=== PATIENT | female | born 1950 | race Caucasian/White ===

== ENCOUNTER 2023-01-03 09:16 | Outpatient (CLI) | payer MEDICARE, SELFPAY ==
--- NOTE | ~2023-01-03 | XR_ITS ---
Left Shoulder Technique: AP and scapular Y views were obtained. Clinical History: Pain Findings: No fracture or dislocation is seen. Osseous alignment is anatomic. Glenohumeral joint is in tact. Evidence of prior subacromial decompression with probable partial resection of the distal clavi venessa as associated widening of the acromioclavicular space. Suture anchor is noted at the humeral head . Soft tissues are unremarkable. Impression: No acute abnormality evident. Evidence of prior rotator cuff surgery and probable prior subacromial decompression and partial resec tion of the distal clavicle. Correlate with surgical history. Reviewed, dictated and finalized at [facility]. IAL EVENTS ASSISTANT Impression: No acute abnormality evident. Evidence of prior rotator cuff surgery and probable prior subacromial decompres jackson and partial resection of the distal clavicle. Correlate with surgical hist ory.
== END 2023-01-03 09:17 | disposition home or self-care (01) ==
PROVIDERS: PCP Family Medicine; Visit Provider Orthopaedic Surgery
DX: M25.512 Pain in left shoulder (principal)
CPT/HCPCS: 73030

== ENCOUNTER 2023-02-23 08:33 | Outpatient (CLI) | payer MEDICARE, SELFPAY ==
--- NOTE | ~2023-02-23 | CT_ITS ---
Noncontrast CT scan of the left shoulder CLINICAL HISTORY: Preoperative planning TECHNIQUE: Axial noncontrast imaging of the left shoulder was performed. Sagittal oblique and coronal oblique reformatted images were constructed. Dose reduction technique was used on this scan by Copiny automated exposure control and iterative reconstruction technique. The dose-length product (DLP) was 483.93 mGy-cm. Findings: There is moderate degenerative change of the glenohumeral joint, with small inferomedial hu meral head osteophyte, as well as glenoid osteophytes present. There is probable mild joint space isa rowing of the glenohumeral joint with small areas of subchondral cystic change at the glenoid. Sugges tion of mildly high riding humeral head. Suture anchors are present at the greater tuberosity, consis tent with prior rotator cuff repair surgery. There is widening of the acromioclavicular distance, lik joaquina related to postoperative change. Suspected small glenohumeral joint effusion present. No muscle atrophy evident. No soft tissue mass o r other fluid collection evident. IMPRESSION: Moderate glenohumeral joint degenerative change, as above. Evidence of prior rotator cuff repair surgery with mildly high riding humeral head. Widening of the acromioclavicular distance, likely related to prior subacromial decompression and/or distal clavicular resection. Correlate with surgical history. Probable small glenohumeral joint effusion. Reviewed, dictated and finalized at [facility]. IMPRESSION: Moderate glenohumeral joint degenerative change, as above. Evidence of prior rotator cuff repair surgery with mildly high riding humeral h ead. Widening of the acromioclavicular distance, likely related to prior subacromial decompression and/or distal clavicular resection. Correlate with surgical hist ory. Probable small glenohumeral joint effusion.
== END 2023-02-23 08:34 | disposition home or self-care (01) ==
PROVIDERS: PCP Family Medicine; Visit Provider Orthopaedic Surgery
DX: M19.012 Primary osteoarthritis, left shoulder (principal)
CPT/HCPCS: 73200

== ENCOUNTER 2023-03-19 11:43 | Outpatient (CLI) | payer MEDICARE, SELFPAY ==
--- NOTE | 2023-03-19 12:43 | ECG_ITS ---
Measurements Intervals [place] Rate: 50 P: 79 [place]: 148 QRS: 73 QRSD: 78 T: 45 QT: 421 QTc: 385 Interpretive Statements SINUS BRADYCARDIA RSR' IN V1 OR V2, PROBABLY NORMAL VARIANT DELAYED PRECORDIAL R/S TRANSITION BASELINE ARTIFACT- I, II, III, AVR, AVL, AVF, V3 BORDERLINE ECG NO PREVIOUS ECG AVAILABLE FOR COMPARISON Electronically Signed On 03-19-2023 13:21:26 CDT by Pancho Mc D.O.
[2023-03-19 14:29] LABS: Basophils Absolute Auto 0.1 K/mm3 (0.0-0.1); Basophils Percent Auto 0.9 % (0.2-1.2); Eosinophils Absolute Auto 0.1 K/mm3 (0-0.3); Eosinophils Percent Auto 1.9 % (0-4.4); Hematocrit 44.2 % (37.0-47.0); Immature Granulocyte Absolute 0.02 K/mm3 (0.00-0.031); Immature Granulocyte Percent A 0.3 % (0-0.5); Lymphocytes Absolute Auto 2.05 K/mm3 (0.9-3.2); Lymphocytes Percent Auto 31.6 % (18.3-44.2); Mean Corpuscular HGB Conc 33.9 g/dl (32-36); Mean Corpuscular Hemoglobin 32.8 pg (26-34); Mean Corpuscular Volume 96.7 fl (80-100); Mean Platelet Volume 10.2 fl (7.4-10.4); Monocytes Absolute Auto 0.5 K/mm3 (0.1-0.6); Monocytes Percent Auto 7.9 % (2.6-8.5); Neutrophils Absolute Auto 3.7 K/mm3 (1.3-6.7); Neutrophils Percent Auto 57.4 % (45.5-73.1); Platelet Count Result 281 k/mm3 (150-375); Red Blood Count 4.57 M/mm3 (4.2-5.4); Red Cell Distribution Width 12.4 % (11.5-14.5); White Blood Count 6.5 K/mm3 (4.5-10.0)
== END 2023-03-19 11:44 | disposition home or self-care (01) ==
PROVIDERS: PCP Family Medicine; Visit Provider Orthopaedic Surgery
DX: M12.812 Other specific arthropathies, not elsewhere classified, left shoulder (principal); I48.91 Unspecified atrial fibrillation; R94.31 Abnormal electrocardiogram [ECG] [EKG]
CPT/HCPCS: 36415; 85025; 87081; 93005

== ENCOUNTER 2023-04-17 00:14 | Day surgery (SDC) | payer MEDICARE, SELFPAY ==
[2023-03-19 12:02] VITALS: BMI 22.1
--- NOTE | 2023-03-19 12:30 | PC.NURSE ---
Addendum entered by Silvina Arcos RN 03/19/23 13:08: BENI HOLD 7 DAYS PRE OP.LAST DOSE 04/09/23 Original Note: Report to the Outpatient Waiting Room, entrance under the green pavilion located off [facility], at time _0600 on date _04/17/23 . Planned Procedure Time: _0730 . Time changes happen often and if your time is changed the preop area will call you the afternoon before. - You and your visitor will be asked to self-screen and do not enter if you have any COVID symptoms. - A mask is optional within the hospital at this time. Patients may have clear liquids (water, carbonated beverages, clear teas, apple juice) until 3 hours prior to surgery with a maximum of 20 ounces. - No food from midnight until time of surgery - Infants may have breast milk until 4 hours before surgery, formula 6 hours prior to surgery. - Children will be allowed to drink immediately following surgery. If applicable, please bring a bottle or sippy cup to assist with drinking. Juice, water, soda, and popsicles are readily available. For infants on formula, please bring formula the day of surgery. Pacifiers are allowed. Take the following medications with a SIP of water the morning of surgery: ___DILTIAZEM DO NOT STOP ANY OF YOUR OTHER PRESCRIPTION MEDICATIONS PRIOR TO SURGERY ?EXCEPT THE FOLLOWING Medications to discontinue per physician __PT STATES HOLD DABIGATRAN 2 DAYS PRE OP PER DR OLMEDO LAST DOSE 04/14/23 AND HOLD ALL VITAMINS/SUPPLEMENTS 7 DAYS PRE OP _LAST DOSE 04/09/23 Date to take last dose Please no make-up, nail swedish, hairspray, perfume, deodorant, or body powder the day of surgery. No jewelry (including any body piercings) or valuables the day of surgery, leave them at home. Please take a shower or bath the night before, or the morning of, surgery with an antibacterial soap. Wear comfortable, loose fitting clothing. Children are encouraged to wear pajamas. - Jewelry must be removed prior to entering the operating room. Rings and piercings that are not removed may be cut off. - The hospital will not accept responsibility for valuables. - Please leave all valuables, including medications, at home the day of surgery. If you are going home after surgery, a licensed miniature train driver must drive you home. - NO public transportation without another adult if you receive anesthesia. - We recommend that an adult stay with you for 24 hours following discharge. - We also recommend that you do not drive, make important decision, drink alcoholic beverages, or take any drugs that were not prescribed by your health care provider for at least 24 hours after your discharge time. For Pediatric surgeries, we recommend two adults accompany the child home. Follow any additional instructions given to you from your surgeon. If you or anyone in your household have experienced Covid symptoms in the past week, please notify your surgeon or the nurse liaison at the phone number below for possible testing. VERBAL AND WRITTEN instructions given to ___PATIENT and asked if any additional questions and then verbalized understanding. Patient advised to call surgeon office or pre surgery nurse liaison [phone] if any additional questions.
--- NOTE | 2023-04-16 14:19 | WPDANESEPPF ---
Anes - Initial Pre Proc Eval Procedure: Operation Date: 04/17/23 07:30 Proposed Procedures p Left Reverse Total Shoulder Arthroplasty - Ethan Anand MD Date/Time: 04/16/23 14:19 Surgeon: Ethan Anand MD Pre Op Diagnosis: Left Rot Cuff Arthropathy Patient Data Age: 72 Gender: F Height: 1.7 m Weight: 64 kg Allergies Allergy/AdvReac Type Severity Reaction Status Date / Time Mtcpchg-QBB-UrI Reductase Allergy Unknown Cramping Verified 04/17/23 06:34 Inhibitor of the Muscles ezetimibe AdvReac Cramping Verified 04/17/23 06:34 of the Muscles Home Medications Medication Instructions Recorded Confirmed Type calcium carbonate 600 mg-vitamin 1 tablet PO DAILY 01/01/23 04/17/23 History D3 20 mcg (800 unit) tablet (Caltrate with Vitamin D3) cholecalciferol (vitamin D3) 10 10 mcg PO DAILY 01/01/23 04/17/23 History mcg (400 unit) capsule dabigatran etexilate 150 mg 150 mg PO BID 01/01/23 04/17/23 History capsule (Pradaxa) diltiazem HCl 120 mg 120 mg PO DAILY 01/01/23 04/17/23 History capsule,extended release 24 hr omega 0-nmu-oum-fish oil 60 mg-90 1 cap PO DAILY 01/01/23 04/17/23 History mg-500 mg capsule (Fish Oil) glucosamine 750 bt-xonrakouqpw-kjq 1 tablet PO DAILY 03/19/23 04/17/23 History no1 644 mg-C 30 mg-sera 1 mg tablet (Osteo Bi-Flex Triple Strength) naproxen sodium 220 mg capsule 440 mg PO BID PRN Pain 03/19/23 03/19/23 History (Aleve) vitamin A-vitamin C-vit E-min 1 tablet PO DAILY 03/19/23 04/17/23 History tablet Patient hx anesthesia problems: post op nausea/vomiting Family hx anesthesia problems: none Results Review: All pre-operative results and documents have been reviewed as part of the pre-operative evaluation. [facility] Past Medical History Medical History (Updated 04/16/23 @ 14:19 by Thien Shin DO) Atrial fibrillation, chronic History of bruising easily History of postoperative nausea and vomiting History of skin cancer Multiple surgeries History of stress test (~2020) Hyperlipidemia PONV (postoperative nausea and vomiting) Surgical History Surgical History History of arthroscopy of left shoulder (~10/2015) History of cardiac radiofrequency ablation (~04/2015) History of cardiac radiofrequency ablation (~02/2017) History of foot surgery (~12/2014) History of foot surgery (~11/2017) Toe Dislocation History of rotator cuff surgery (~12/2000) History of rotator cuff surgery (~10/2018) History of tooth extraction Family History Family History Unknown Skin cancer Arthritis Atrial fibrillation, chronic Social History Social History Smoking status: Never smoker Alcohol intake: current Drinks per week: 10 Alcohol use details: 1-5 drinks per week Substance use: current Substance use type: marijuana Other substance usage details: not specified Last use: 03/17/23 Lack of Transportation: No Lack of Food: Never True Current Housing: I Have Housing Concerned About Future Housing: No Difficulty Paying Gas/Electric Bills: No Difficulty Paying for Meds: No Currently Unemployed: No Education: Bachelor's Degree Difficulty w/ Childcare or Family Care: No Living arrangements: with family Spiritual care concerns: No Anes - Eval Final PreProcedure Day of Procedure 04/16/23 14:19 Patient weight: normal Heart: regular rate and rhythm Lungs: clear to auscultation and normal air movement Airway: Mallampati scale class II Neurological: alert and oriented Last oral intake: >/= 8 hours ASA classification: III Emergent: no Anesthetic plan: proceed Anesthesia type and monitoring: general ETT and standard monitoring Results Review: All pre-operative results and documents have been revie
[2023-04-17] VITALS (11 sets, daily range): BP systolic 120–142; BP diastolic 49–69; PULSE 52–63; RESP 13–21; TEMP 36.1–36.4; O2SAT 98–100
--- NOTE | ~2023-04-17 | XR_ITS ---
EXAMINATION: XR shoulder LT min 2V DATE: 04/17/2023 10:37 INDICATION: Left shoulder arthroplasty. Postop. TECHNIQUE: 2 views of left shoulder were obtained. COMPARISON: Left shoulder radiographs 01/03/2023 FINDINGS: There is a reverse ekap-etc-gznhvv total left shoulder arthroplasty in near-anatomic alignm ent. There are pre-existing screws in greater tuberosity. No fracture. There are likely changes of di stal clavicle resection. There is gas in the soft tissues, consistent with recent surgery. IMPRESSION: 1. Reverse wzmd-ofd-lauxir total left shoulder arthroplasty in near-anatomic alignment. Reviewed, dictated and finalized at location A. IMPRESSION: 1. Reverse szml-dsm-tsnyxh total left shoulder arthroplasty in near-anatomic al ignment.
[2023-04-17] MEDS: LACTATED RINGERS 1,000 ML 30 ML IV CONT ×2 (06:45→10:15)
[2023-04-17] MEDS: ACETAMINOPHEN 500 MG TABLET 1000 MG PO (06:50)
[2023-04-17] MEDS: TRANEXAMIC ACID 1,000MG/ISO100 1,000 MG/100 ML BAG 200 MG IVPB (06:51)
--- NOTE | 2023-04-17 07:13 | WPDHPUPDATE1 ---
History and Physical Update Update Date/Time: 04/17/23 07:13 History and Physical has been reviewed, including an updated exam of the patient. There are NO changes in the patient's condition. Risks, benefits, and alternatives have been discussed and questions answered. Patient agrees to proceed with procedure.
--- NOTE | 2023-04-17 07:22 | WPDANESPNB ---
Anes - Peripheral Nerve Block Date/Time: 04/17/23 07:22 I have discussed with the patient/family/POA the placement of a peripheral nerve block for post-operative pain management, including associated risks, benefits, complications, and side effects. Alternative methods of post-operative analgesia were detailed. Questions were solicited and answers provided to the satisfaction of the patient/family/POA. Time-Out: A pre-procedural Time-Out was completed immediately before starting the procedure and confirmed: Patient Identification, Site, Procedure, Patient Position and the Availability of Requisite Equipment. Clinical Indications: Acute post-operative pain management requested by the operative surgeon. Nerve Block Insertion Note Anes-nerve block: interscalene left Patient position: supine Skin prep: chlorhexidine Needle: 22 gauge, stimulating, insulated echogenic needle. Needle length: 50 mm Technique: ultrasound Injectate: bupivacaine 0.5% with epi 5 mcg/ml (30cc- no epi) Observations: tolerated well Complications: none Procedure start time:: 725 Procedure end time:: 728
[2023-04-17] MEDS: ceFAZolin 2 GM/D5W 50 ML 2 GM/50 ML BAG IVPB (07:42)
[2023-04-17] MEDS: VANCOMYCIN HCL 1,000 MG VIAL 1000 MG TOPICAL (08:58)
--- NOTE | 2023-04-17 10:13 | P.OP_ITS ---
Procedure Note - Detailed Date of Procedure 04/17/23 Pre-op Diagnosis Left shoulder rotator cuff arthropathy. Post-op Diagnosis Same Procedure Performed Reverse total shoulder arthroplasty, left shoulder. Surgeon Ethan Anand MD Anesthesia General and Regional (Interscalene block.) Findings Good cancellous bone quality. 5 degree augment placed superiorly. Additional 5? inferior tilt added with reaming. Care taken to avoid overstuffing due to thin acromion status post previous acromioplasty. Subscapularis repaired. Description of Procedure The patient was given an interscalene block in the preoperative area. Preoperative antibiotics were given. The patient was transferred to the operating room and a general anesthetic was administered. The beach chair position was used at 45 degrees. All bony prominences were padded. The head was carefully stabilized on the [facility] wet process miller head. A sterile prep and drape was performed in the usual manner with ChloraPrep. A longitudinal incision was created at the anterior shoulder just lateral to the deltopectoral interval. Hydrogen peroxide was placed on the incision and then rinsed after one minute. Careful dissection was performed to expose the interval and protect the cephalic vein. The vein was retracted medially. The upper border of the pectoralis was released. Anterior circumflex vessel branches were suture ligated. The biceps was tenodesed. A subscapularis tenotomy was performed. The inferior capsule was released, exposing the humeral head. Osteophytes were removed. Care was taken to stay on bone to protect the axillary nerve. The anatomic head cut was taken with the oscillating saw. The guide pin was placed, central drilling performed, and the broach trial inserted. The neck anteversion and inclination were carefully assessed. The cut protector was placed, and attention was turned to the glenoid. Retractors were placed. Releases were carried out for exposure. The subscapularis was mobilized, the inferior capsule and long head of triceps released, and the superior and middle glenohumeral ligaments released as well. Labral tissue was resected as needed. The sizing template was used to assess the baseplate position low on the glenoid. A guide pin was placed. Minimal reaming was used to accomplish a flat surface without violating the subchondral bone. Version was corrected according to preoperative templating. The boss was drilled, and the real component was impacted into position. Supplemental locking screws were placed centrally, superiorly, and inferiorly. The glenosphere was impacted into the taper. The proximal humerus was reamed for the inset component. The humeral components were trialed. The real humeral stem, tray, and insert were impacted into position. The shoulder was copiously irrigated periodically with pulsatile lavage. The shoulder was reduced and stability confirmed. 1 gram of Vancomycin powder was placed in the joint. The biceps tenodesis was incorporated with the pectoralis tendon repair. The deltopectoral space was reapproximated with number 1 Vicryl. The remaining tissue was closed with 0 Quill and 2-0 Quill running suture and steri-strips. A sterile silver occlusive dressing and shoulder immobilizer were placed. The patient was trans ferred to the recovery room. Implants Shoulder [employer]ations reverse TSA size 0 stem. +0 polyethylene insert. 5 degree augmented baseplate. 33+3 mm glenosphere. Estimated Blood Loss 20 Drains No Pathology None sent Complications No immediate complications Condition Stable Disposition PACU [facility] Billing Surgery - Charge Forward: Surgery Billing
--- NOTE | 2023-04-17 11:38 | ADMGEN ---
This patient, Britt Fuchs, was admitted to 2 Medical Room 251-01. Patient/family oriented to hospital policies and general routines including ID bracelet, bed and alarms, visiting hours, pain management, procedures, bathroom and other care routines, personal items, smoking policy, room service/diet, and visiting hours. Information on how to activate the Rapid Response Team has been discussed. Patient/Family are encouraged to report perceived risks to care and to ask questions if they do not understand what they are told or what they should do.
[2023-04-17] MEDS: SENNA/DOCUSATE SODIUM TABLET 2 TAB PO (16:07)
[2023-04-17] MEDS: ASPIRIN 81 MG ENTERIC TABLET PO (16:08)
[2023-04-17] MEDS: ceFAZolin 1 GM/NS 50 ML 1 GM/50 ML BAG IVPB ×2 (16:15→22:26)
[2023-04-17] MEDS: oxyCODONE HCL (*CRX) 5 MG TAB IR PO (22:27)
--- NOTE | 2023-04-18 10:40 | PCPTNOTE ---
PT attempted to see patient at this time, however patient states she has increased L shoulder pain and requests PT return later. PT will continue to follow per plan of care.
--- NOTE | 2023-04-18 19:10 | PC.NURSE ---
Paper documentation exists on this patient due to [employer] downtime on 04/18/23 from 0030 to 1900] .
[2023-04-19 13:27] LABS: Sodium 138 mmol/L (137-145)
[2023-04-19 13:28] LABS: Anion Gap 6 mmol/L (8-16); Blood Urea Nitrogen 15 mg/dL (7-17); Calcium 8.9 mg/dL (8.4-10.2); Carbon Dioxide 29 mmol/L (22-30); Chloride 103 mmol/L (98-107); Estimated CRCL calculation 85 ml/min; Estimated Glomerular Filt Rate > 60; Glucose 103 mg/dL (65-110); Potassium 4.6 mmol/L (3.4-5.0)
--- NOTE | 2023-04-19 16:33 | PM.DS ---
DS: Admitting Diagnosis Discharge Date 04/18/23 Admitting Diagnosis Date of Procedure 04/17/23 Pre-op Diagnosis Left shoulder rotator cuff arthropathy. Post-op Diagnosis Same Procedure Performed Reverse total shoulder arthroplasty, left shoulder. DS: Discharge Diagnosis Discharge Diagnosis (1) Status post reverse total arthroplasty of left shoulder: Code(s): Z96.612 - Presence of left artificial shoulder joint Status: Acute DS: Summary Hospital Course Reason for hospitalization: Total shoulder arthroplasty. Hospital Course: Tolerated surgery well. Progressed appropriately with therapy. Status at Discharge Functional status at discharge: independent ambulation Overall status at discharge: patient is progressing back to baseline Time Spent with Patient Time attestation: Total time spent providing and/or coordinating discharge services: Exam Const: General: no acute distress Resp: Effort & Inspection: normal respiratory effort Skin: Other: Wound healing well. Mepilex dressing intact. No hematoma or drainage. Sling applied appropriately. Deltoid muscle fires. Axillary nerve sensation intact. Good senior piping designer strength. No edema. radial pulse palpable. Neuro: Motor exam (neuro): 5/5 motor strength present throughout Sensory Exam: normal sensation Psych: Mental Status: mental status grossly normal Speech and movement: Normal speech and movement present DS: Data Data Completed and Pending Labs on day of discharge: Labs from last 24 hours 04/18/23 05:00 Sodium 138 Potassium 4.6 Chloride 103 Carbon Dioxide 29 Anion Gap 6 L BUN 15 Creatinine 0.50 L Estim Creat Clear Calc 85 Estimated GFR > 60 Glucose 103 Calcium 8.9 Discharge Plan Discharge Patient Disposition: Home, Self-Care Discharge Instructions: See specific order sheet from Dr Anand discharge instructions Keep dressing in place for 7 days Paper scripts given from MD due to downtime Discharge Medications: No Action diltiazem HCl 120 mg capsule,extended release 24hr 120 mg PO DAILY dabigatran etexilate [Pradaxa] 150 mg capsule 150 mg PO BID cholecalciferol (vitamin D3) 10 mcg (400 unit) capsule 10 mcg PO DAILY omega 8-wcm-bsk-fish oil [Fish Oil] 60-90-500 mg capsule 1 cap PO DAILY calcium carbonate-vitamin D3 [Caltrate with Vitamin D3] 600 mg-20 mcg (800 unit) tablet 1 tablet PO DAILY Ocuvite Tablet 1 tablet PO DAILY Osteo Bi-Flex Triple Strength 750 mg-644 mg- 30 mg-1 mg Tablet 1 tablet PO DAILY naproxen sodium [Aleve] 220 mg Capsule 440 mg PO BID PRN (Reason: Pain)
== END 2023-04-18 18:00 | disposition home or self-care (01) ==
LOC: ANHSURGERY 06:18 → ANH2MED 11:10
PROVIDERS: PCP Family Medicine; Visit Provider Orthopaedic Surgery
PROC: (CPT 23472; principal; 2023-04-17 07:30)
DX: M12.812 Other specific arthropathies, not elsewhere classified, left shoulder (principal); G89.18 Other acute postprocedural pain; I48.20 Chronic atrial fibrillation, unspecified; E78.5 Hyperlipidemia, unspecified; Z79.01 Long term (current) use of anticoagulants; F12.90 Cannabis use, unspecified, uncomplicated
CPT/HCPCS: 23472; 64415; 36415; 73030; 80048; 86850; 86900; 86901; 97110; 97161; 97165; 97530; 97535; 99199; A4565; A9270; C1776; J0171; J0690; J1100; J1885; J2250; J2270; J2405; J2704; J2795; J3010; J3370; J7120

== ENCOUNTER 2023-05-09 10:37 | Outpatient (CLI) | payer MEDICARE, SELFPAY ==
--- NOTE | ~2023-05-09 | XR_ITS ---
Left Shoulder Technique: AP and scapular Y views were obtained. Clinical History: Postoperative COMPARISON: 04/17/2023 Findings: No fracture or dislocation is seen. Shoulder arthroplasty hardware is unchanged. Soft tissu es are unremarkable. Impression: No acute abnormality. Shoulder arthroplasty is unchanged. Reviewed, dictated and finalized at location . Impression: No acute abnormality. Shoulder arthroplasty is unchanged.
== END 2023-05-09 10:38 | disposition home or self-care (01) ==
LOC: ANHIMG 10:40
PROVIDERS: PCP Family Medicine; Visit Provider Orthopaedic Surgery
DX: Z96.612 Presence of left artificial shoulder joint (principal)
CPT/HCPCS: 73030

== ENCOUNTER 2024-06-11 07:34 | Outpatient (CLI) | payer MEDICARE, SELFPAY ==
--- NOTE | ~2024-06-11 | XR_ITS ---
EXAMINATION: XR shoulder LT min 2V DATE: 06/11/2024 07:49 INDICATION: Presence of left artificial shoulder joint. TECHNIQUE: 5 views of left shoulder were obtained. COMPARISON: Left shoulder radiographs 08/15/2023 FINDINGS: There is a reverse jotv-psw-wcsxbl total left shoulder arthroplasty in near-anatomic alignm ent. No fracture. No periprosthetic lucency to suggest loosening or infection. There are changes of d istal clavicle resection. There is a suture anchor in greater tuberosity. There is stable mild scarri ng at left lung apex. IMPRESSION: 1. Total left shoulder arthroplasty in near-anatomic alignment. Reviewed, dictated and finalized at location A.
== END 2024-06-11 07:35 | disposition home or self-care (01) ==
PROVIDERS: PCP Family Medicine; Visit Provider Orthopaedic Surgery
DX: Z96.612 Presence of left artificial shoulder joint (principal)
CPT/HCPCS: 73030